=== PATIENT | male | born 1950 | race Caucasian/White ===

== ENCOUNTER 2024-10-18 07:31 | Inpatient (IN) | payer MEDICARE ==
[~2024-10-18] VITALS: Ht 177.8 cm; Wt 87.8 kg
[2024-10-18] VITALS (12 sets, daily range): BP systolic 120–141; BP diastolic 68–73; PULSE 76–96; RESP 20–44; TEMP 98–98.8; O2SAT 91–98
[~2024-10-18 07:31] MED LIST: UNABLE TO OBTAIN
--- NOTE | 2024-10-18 07:39 | ELECTROCARDIOGRAPH REPORT ---
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 Rodney Zayas Measurements Intervals [place] Rate: 93 P: 45 ID: 53 QRS: 84 QRSD: 132 T: 51 QT: 381 QTc: 474 Interpretive Statements Sinus rhythm Short ID interval Probable left atrial enlargement Right bundle branch block Electronically Signed On 10-18-2024 18:28:[address] Rodney Zayas Please click the below link to view image of tracing.
[2024-10-18 07:58] LABS: ABG BASE EXCESS 2.1 mmol/L (-2.0-3.0); ABG OXYGEN SATURATION 97.1 % (94.0-98.0); ABG PCO2 (T) 38.1 mmHg (35.0-48.0); ABG PH (T) 7.452 (7.350-7.450); ALLEN'S TEST POSITIVE; FCOHb 0.3 % (0.5-1.5); FHHb 2.9 % (0.0-5.0); FMetHb 0.3 % (0.0-1.5); FO2Hb 96.5 % (94.0-98.0); MODE MASK - BIPAP; PATIENT TEMPERATURE 37.1; RESPIRATORY RATE 18 b/min; TIDAL VOLUME 674 mL; TOTAL HEMOGLOBIN 12.7 G/dl (13.5-17.5)
--- NOTE | 2024-10-18 07:58 | ELECTROCARDIOGRAPH REPORT ---
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 Rodney Zayas Measurements Intervals [place] Rate: 87 P: 57 [place]: 143 QRS: 128 QRSD: 137 T: 56 QT: 425 QTc: 512 Interpretive Statements Sinus rhythm Right bundle branch block Borderline ST elevation, lateral leads Baseline wander in lead(s) V2 Electronically Signed On 10-18-2024 18:28:[address] Rodney Zayas Please click the below link to view image of tracing.
[2024-10-18] MEDS ORDERED: cefazolin 2gm/D5W 100mL 100 ML IV ONE (08:00)
[2024-10-18] MEDS: ipratropium/albuterol 3ml nebule NEB ONE (08:06)
[2024-10-18] MEDS: racepinephrine 11.25mg/0.5ml nebule IH ONE (08:06)
[2024-10-18] MEDS: midazolam 1 mg/ML 2ml injection IV ONE (08:10)
[2024-10-18] MEDS: ceFAZolin 2gm in dextrose, iso 50 ML IV ONE (08:15)
[2024-10-18] MEDS: piperacillin/tazo 3.375gm/50ml 50 ML IV ONE (08:20)
[2024-10-18 08:29] LABS: BASOPHILS # (AUTO) 0.1 X10'3 (0-0.2); BASOPHILS % (AUTO) 0.9 % (0-1); EOSINOPHILS # (AUTO) 0.2 X10'3 (0-0.9); HEMATOCRIT 36.2 % (42.0-52.0); HEMOGLOBIN 12.2 g/dl (14.0-17.9); LYMPHOCYTES # (AUTO) 1.5 X10'3 (1.1-4.8); LYMPHOCYTES % (AUTO) 11.9 % (21-51); MEAN CORPUSCULAR HEMOGLOBIN 29.6 PG (27.0-31.0); MEAN CORPUSCULAR HGB CONC 33.6 g/dL (33.0-36.5); MEAN CORPUSCULAR VOLUME 88.2 FL (78-98); MEAN PLATELET VOLUME 7.1 FL (7.4-10.4); MONOCYTES # (AUTO) 1.4 X10'3 (0-0.9); MONOCYTES % (AUTO) 11.1 % (2-12); NEUTROPHILS # (AUTO) 9.1 X10'3 (1.8-7.7); NEUTROPHILS % (AUTO) 74.1 % (42-75); PLATELET COUNT 449 X10'3 (140-440); RED BLOOD COUNT 4.11 X10'6 (4.70-6.10); RED CELL DISTRIBUTION WIDTH 15.4 % (11.5-14.5); WHITE BLOOD COUNT 12.3 X10'3 (4.5-11.0)
--- NOTE | 2024-10-18 08:30 | RADIOLOGY REPORT ---
DI CHEST,SINGLE VIEW, HISTORY: CP COMPARISON: DI CHEST,SINGLE VIEW on DOS: 09/27/24, DI CHEST,SINGLE VIEW on DOS: 02/25/23 DI CHEST,SINGLE VIEW on DOS: 09/27/24, DI CHEST,SINGLE VIEW on DOS: 02/25/23 TECHNICAL DATA: 1 view of the chest was obtained. FINDINGS: Lines and tubes: None Cardiomediastinal silhouette: Prominent Pulmonary vasculature: normal Lung expansion: normal Lung airspace: Multifocal bilateral patchy airspace opacities. Lung interstitium: normal Pleura: normal Pneumothorax: no Bones: Unremarkable Other: no IMPRESSION: Multifocal bilateral patchy airspace opacities. Can be seen with pulmonary edema
[2024-10-18 08:48] LABS: ALANINE AMINOTRANSFERASE 42 U/L (12-78); ALBUMIN/GLOBULIN RATIO 0.4 (1.1-1.5); ALKALINE PHOSPHATASE 181 IU/L (46-116); ANION GAP 6 (8-16); ASPARTATE AMINO TRANSFERASE 85 U/L (10-37); BILIRUBIN,TOTAL 0.4 MG/DL (0.1-1.0); BLOOD UREA NITROGEN 13 MG/DL (7-18); BUN/CREATININE RATIO 16.5 (10.0-20.0); CALCIUM 8.4 MG/DL (8.5-10.1); CHLORIDE 100 MMOL/L (99-107); CREATININE 0.79 MG/DL (0.60-1.10); GLUCOSE 110 MG/DL (70-104); POTASSIUM 4.3 MMOL/L (3.5-5.1); SODIUM 134 MMOL/L (135-145); TOTAL CARBON DIOXIDE 28.2 MMOL/L (24-32); TOTAL PROTEIN 7.4 G/DL (6.4-8.2); eCRCL 83 ML/MIN; eGFR > 90 ML/MIN
[2024-10-18 08:55] LABS: PRO BRAIN NATRIURETIC PEPTIDE 4888 PG/ML (0-450)
--- NOTE | 2024-10-18 09:08 | Physician Documentation ---
History of Present Illness ~ Chief Complaint: Shortness of Breath Stated Complaint: SOB Time Seen by MD: 07:47 Primary Medical Doctor: Dr. Brady Mode of Arrival: EMS HPI 74-year-old male patient was brought to the emergency room from [facility] where he was getting treatment for his left foot infection with IV antibiotics (cefazolin) and that he started to have shortness a breath since last night. It got better and then it get worse this morning. Therefore he was brought to the emergency room by ambulance. He said he is feeling hot. His temperature was recorded normal. The patient denies any pain. Medication Reconciliation Allergies: Coded Allergies: No Known Allergies (Unverified , 10/18/24) Miscellaneous Medications Unable to Obtain Medications (Unable to Obtain Medications), (Reported) Past Medical History Past Medical History: Chronic Pain, Anxiety Past Surgical History: orthopedic surgeries Patient History: FH: esophageal cancer MOTHER, FH: heart attack FATHER, Alcohol Use: Alcoholic Drug Use: none Lives with: Alone Lives In: Home Occupation: retired Review of Systems ROS As stated above in the HPI, otherwise all systems are reviewed and negative. Physical Exam Vital Signs: Temperature: 98.3, Source: Axillary, Heart Rate: 83, Respiratory Rate: 23, BP: 131/77, Pulse Oximetry: 95, Weight: 89.000 Physical Exam Vital signs reviewed and patient is afebrile with stable hemodynamics except increased respiratory rate . Const: Patient is in gxeg-ln-hmgyegry respiratory distress Head: Atraumatic Eyes: Normal Conjunctiva ENT: Normal External Ears, Nose and Mouth. Moist mucous membranes Neck: Full range of motion. No meningismus Resp: Good airflow with a scattered expiratory wheezes bilaterally. Some crackles at the bases. Moderately increased work of breathing Cardio: Regular rate and rhythm, no murmurs. Skin well perfused Abd: Soft, non-tender, non-distended. Normal bowel sounds. No rebound or guarding Skin: No petechiae or rashes. Warm and dry Back: No midline or flank tenderness Ext: No cyanosis, or edema Neuro: Awake and alert Psych: Normal Mood and Affect Progress Results/Orders Results/Orders Orders - ADDIE ALEJANDRA MD Chest,Single View (10/18/24 07:34) Monitor (10/18/24 07:34) Saline Lock (10/18/24 07:34) Oxygen (10/18/24 07:34) Hs Troponin I W Calculations (10/18/24 09:34) Hs Troponin I W Calculations (10/18/24 10:34) Culture Blood (10/18/24 07:34) Urinalysis, Cult If Indicated (10/18/24 07:34) Chest,Single View (10/18/24 07:34) Procalcitonin (10/18/24 07:34) Straight Cath For Urine Sample (10/18/24 07:34) Bipap/Cpap (10/18/24 ) Abg (Arterial Blood Gas) (10/18/24 ) Completed Orders - ADDIE ALEJANDRA MD Electrocardiogram (10/18/24 ) Chest,Single View (10/18/24 07:34) Cbc/Diff (10/18/24 07:34) PBNP (10/18/24 07:34) Electrocardiogram (10/18/24 07:34) CMP (10/18/24 07:34) Hs Troponin I W Calculations (10/18/24 07:34) BMP (10/18/24 07:34) Lacticsepsis (10/18/24 07:34) Cefazolin 2gm/D5w 100ml (Cefazolin 2gm/1 (10/18/24 08:00) Cefazolin 2gm In Dextrose, Iso (Cefazoli (10/18/24 08:00) Midazolam 1 Mg/Ml 2ml Inj. (Versed 1 Mg/ (10/18/24 08:05) Ipratropium/Albuterol Nebule (Ipratrop/A (10/18/24 08:00) Racepinephrine Nebule (S-2 Nebule) (10/18/24 08:00) * Rt Notification Q1H (10/18/24 08:00) Piperacillin/Tazo 3.375gm/50ml (Zosyn 3. (10/18/24 08:15) Medications Received in ER Medications (Trade) Dose Ordered Sig/[place] Route PRN Reason Start Time Stop Time Status Last Admin Dose Admin (VERSED 1 MG/ML 2 ML inj.) 1 mg ONCE ONCE IV 10/18/24 08:05 10/18/24 08:06 DC 10/18/24 08:10 1 MG (ipratrop/ albuterol 0.5-3(2.5) MG/3ml nebule) 3 ml Q4H ONCE NEB 10/18/24 08:00 10/18/24 08:03 DC 10/18/24 08:06 3 ML (S-2 nebule) 0.5 ml ONCE ONCE IH 10/18/24 08:00 10/18/24 08:03 DC 10/18/24 08:06 0.5 ML Piperacillin/ Tazobactam/ Dextrose 50 ml @ 100 mls/hr ONCE ONCE IV 10/18/24 08:15 10/18/24 08:44 DC 10/18/24 08:20 100 MLS/HR Vital Signs 10/18/24 10/18/24 10/18/24 10/18/24 07:36 07:41 07:49 07:56 Temp 98.3 98.3 Pulse 95 96 88 89 Resp 50 44 37 22 37 B/P (MAP) 146/95 146/92 (110) Pulse Ox 98 98 98 O2 Delivery Venturi Mask+ O2 Flow Rate 15 FiO2 50 50 50 10/18/24 10/18/24 10/18/24 10/18/24 07:58 08:07 08:13 08:14 Pulse 84 87 Resp 36 37 B/P (MAP) Pulse Ox 94 O2 Delivery BiPAP+ Bi-pap FiO2 40 40 40 10/18/24 08:21 Temp 98.3 Pulse 83 Resp 23 B/P (MAP) 131/77 (95) Pulse Ox 95 FiO2 40 Laboratory Tests Test 10/18/24 07:50 10/18/24 07:51 10/18/24 07:54 White Blood Count 12.3 H Red Blood Count 4.11 L Hemoglobin 12.2 L Hematocrit 36.2 L Mean Corpuscular Volume 88.2 Mean Corpuscular Hemoglobin 29.6 Mean Corpuscular Hemoglobin Concent 33.6 Red Cell Distribution Width 15.4 H Platelet Count 449 H Mean Platelet Volume 7.1 L Neutrophils (%) (Auto) 74.1 Lymphocytes (%) (Auto) 11.9 L Monocytes (%) (Auto) 11.1 Eosinophils (%) (Auto) 2.0 Basophils (%) (Auto) 0.9 Neutrophils # (Auto) 9.1 H Lymphocytes # (Auto) 1.5 Monocytes # (Auto) 1.4 H Eosinophils # (Auto) 0.2 Basophils # (Auto) 0.1 CBC Comment Sodium Level 134 L Potassium Level 4.3 Chloride Level 100 Carbon Dioxide Level 28.2 Anion Gap 6 L Blood Urea Nitrogen 13 Creatinine 0.79 Estimated GFR/1.73 m2 > 90 BUN/Creatinine Ratio 16.5 Glucose Level 110 H Lactic Acid Level 1.5 Calcium Level 8.4 L Total Bilirubin 0.4 Aspartate Amino Transf (AST/SGOT) 85 H Alanine Aminotransferase (ALT/SGPT) 42 Alkaline Phosphatase 181 H Troponin I High Sensitivity 19 Pro-B-Type Natriuretic Peptide 4888 H Total Protein 7.4 Albumin 2.0 L Globulin 5.4 H Albumin/Globulin Ratio 0.4 L Chemistry Comments Glucometer 119 H Blood Gas Specimen Type Arterial Blood Gas Puncture Site Lr O2 Saturation 97.1 Arterial Blood pH (Temp corrected) 7.452 H Arterial Blood pCO2 (Temp correct) 38.1 Arterial Blood pO2 (Temp corrected) 91.0 Arterial Blood PO2/FiO2 Ratio 1.51 Arterial Blood HCO3 26.0 Arterial Blood Base Excess 2.1 Arterial Blood Oxyhemoglobin 96.5 Arterial Blood Carboxyhemoglobin 0.3 L Arterial Blood Methemoglobin 0.3 Arterial Blood Deoxyhemoglobin 2.9 Ernesto Test Positive Blood Gas Hemoglobin 12.7 L Blood Gas Temperature 37.1 Blood Gas Set Respiration Rate 18 Blood Gas Modality Mask - bipap FiO2 50.0 Blood Gas Tidal Volume 674 Blood Gas Critical Value Called To Dr alejandra Medical Decision Making Findings I attended the patient immediately upon arrival because of his respiratory status. I reviewed his advanced medical directions and also talked to him in terms of intubation and he said okay if needed. His lung examination make me think that it could be either CHF exacerbation or aspiration pneumonitis. Patient was put on BiPAP and the he got better. His ABG does not show any CO2 retention and his oxygenation is slightly diminished. FiO2 50% pH 7.45 to, P O2 91 pCO2 38 bicarb 26 O2 sat 96.5%. His CBC showed WBC 12.3 H and H12.2 and 36.2 and platelets 449. Sodium 134 potassium 4.3 chloride 100 bicarb 28.2 BUN 13 creatinine 0.79 and glucose 110. Lactic acid is 1.5. BNP is 4888 Troponin is 19 and procalcitonin is 0.07. Patient will be admitted to the hospital for acute hypoxic respiratory failure probably from diastolic heart failure. Consideration of aspiration pneumonia was also entertained and the patient is put on Zosyn. CRITICAL CARE TIME: [45] minutes Treatments/Evaluations: Close monitoring and treatment of unstable vital signs, cardiorespiratory, and neurologic status, while maintaining tight balance of fluid, respiratory, and cardiac interventions. This time includes discussing the case with the patient and the patient�s family. This time does not include all procedures stated elsewhere in this record. This time also includes reviewing old records, labs and radiological studies. This time includes examining and re- examining the patient. Additionally, this time also includes arranging care with admitting and consulting physicians. Departure Disposition: HOME / SELF CARE / HOMELESS Impression: Primary Impression: Acute on chronic diastolic heart failure Condition: Stable Referrals: NO PRIMARY CARE PROVIDER (PCP) Signature Scribe Signature: x Attestation: ADDIE Gaming MD October 18, 2024 09:08
[2024-10-18] MEDS: furosemide 20 MG/2 ML vial IV ONE (09:28)
[2024-10-18 09:55] LABS: BILIRUBIN,URINE NEGATIVE (Neg); CLARITY,URINE CLEAR (Clear); COLOR,URINE YELLOW (Yellow); GLUCOSE, URINE NEGATIVE (Neg); KETONES,URINE NEGATIVE (Neg); LEUKOCYTE ESTERASE ,URINE NEGATIVE (Neg); NITRITES, URINE NEGATIVE (Neg); OCCULT BLOOD,URINE LARGE (Neg); PROTEIN,URINE 100 mg/dl (Neg); UROBILINOGEN,URINE 0.2 E.U/dL (0.2-1.0)
[2024-10-18 10:00] LABS: UA COLLECTION TYPE VOIDED
[2024-10-18 10:01] LABS: BACTERIA,URINE NONE SEEN /HPF (Neg); MUCUS STRANDS NONE SEEN /LPF (Neg); RBC,URINE 20-50 /HPF (0-2); SQUAMOUS EPITHELIAL CELL,UR NONE SEEN /LPF (FEW); WBC,URINE NONE SEEN /HPF (0-4)
[2024-10-18] MEDS: diazepam inj 5 MG/ML inj. IV ONE (10:02)
[2024-10-18] MEDS ORDERED: mag hydrox/Alum hydrox/simeth 30ml oral suspension PO PRN (12:45)
[2024-10-18] MEDS ORDERED: magnesium Cl slow-release 64mg tablet PO PRN (12:45)
[2024-10-18] MEDS ORDERED: potassium Cl 20 mEq SR tablet PO PRN ×2 (12:45)
[2024-10-18] MEDS ORDERED: acetaminophen 325mg tablet PO PRN (12:45)
[2024-10-18] MEDS ORDERED: ondansetron/PF 4mg/2ml inj IV PRN (12:45)
[2024-10-18] MEDS ORDERED: magnesium sulf-water 4G/100mL 100 ML IV PRN (12:45)
[2024-10-18] MEDS ORDERED: magnesium hydroxide 30ml (MOM) UD suspension PO PRN (12:45)
[2024-10-18] MEDS ORDERED: magnesium sulf-water 2g/50mL 50 ML IV PRN (12:45)
[2024-10-18] MEDS ORDERED: potassium Cl 40MEQ/1/2NS 520ml 520 ML IV PRN (12:45)
[2024-10-18] MEDS: furosemide 40mg/4ml inj IV SCH (12:57)
--- NOTE | 2024-10-18 13:03 | HISTORY AND PHYSICAL-Residence ---
History & Physical Providers to Resident Creating Document: ABIGAIL COLMENARES RES ~ History of Present Illness Primary Medical Doctor: Dr. Yu Reason for Admit\Complaint: Acute hypoxemic respiratory failure History of Present Illness 74-year-old male patient with a past medical history of peripheral neuropathy and currently undergoing treatment for left leg osteomyelitis presents to the hospital from [facility] due to acute desaturation to the 70s. Patient drowsy and irritable during exam and hence most of the history was obtained from the daughter. The daughter reports that since his discharge from the hospital on the October 02, he continued to remain mildly short of breath which had worsened yesterday acutely. He has been ambulatory with physical therapy as well as by himself. Denied any fevers or chills, cough with or without expectoration, or wheezing. Unknown of any sick contacts. He was evaluated at [facility] for abnormal pancreatic lesions which were later proven to be benign in 2022. Requested records. He does have a history of sleep apnea but is noncompliant with his CPAP. 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 Lives at home by himself. Ambulatory and independent. Alcohol Use: Alcoholic Drug Use: None Lives with: Alone Lives In: Home Occupation: retired ROS ROS Unable to be obtained as the patient was drowsy. Exam Vitals: Vital Signs Date Time Temp Pulse Resp B/P (MAP) Pulse Ox O2 Delivery O2 Flow Rate FiO2 10/18/24 12:22 98.3 82 19 133/90 (104) 96 50 10/18/24 11:22 5.0 10/18/24 10:56 Nasal Cannula* General: General: Drowsy, irritable HEENT: Conjunctiva pink, Sclera clear, Mucus Membranes moist. Resp: Tachypneic. Diminished bilateral breath sounds with bilateral basilar fine crepitations. Heart: Regular Rate and rhythm, normal S1 and S2 without murmur, rub or gallop. Abdomen: Soft and non tender no organomegaly Extremities: Left leg swollen when compared to the right leg. There is a wound that is in dressing on the left foot. Wound picture reveals presence of 2 x 2 cm open wound to the bone on the cuneiform of the left foot. 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 Skin: Warm and Dry. Diagnostic Data Last Recorded Lab Results: 10/18/24 0750 10/18/24 0931 Counseling Services Smoking & Tobacco Cessation: 3-10 Minutes Advance Care Planning Advanced Care plannin - 30 Minutes Additional Plan 1. Acute hypoxemic respiratory failure: POA Likely secondary to CHF exacerbation Echocardiogram reveals mildly elevated RVSP of 34, and preserved EF Chest x-ray reveals increased pulmonary vascular congestion with almost complete congestion of the right lung greater than the left lung IV Lasix 40 mg b.i.d. started after receiving 20 mg in the ER. Had not received Lasix at [facility] Strict I&O monitoring Fluid restriction to less than 2 L per day. Heart healthy diet 2. Left foot osteomyelitis: Receiving IV antibiotic therapy at [facility] Continue cefazolin Ambulate with assistance 3. History of paroxysmal AFib: Currently regular rhythm Continue eliquis 5mg BID after medication reconcilation Follows with Dr Carter, no AFib on outpatient monitor 4. Microscopic Hematuria: 1+ proteinuria and hematuria in light of no acute kidney injury Repeat urinalysis ordered Follow urine protein creatinine ratio 5. History of pancreatic masses: Evaluated and [facility] by [facility] Records requested from [facility] 6. Tobacco use disorder: Nicotine patch 21 mg placed Lines: PIV Code status: Limited with no intubation or mechanical ventilation Diet: NPO on the bipap; heart healthy diet after DVT prophylaxis: Heparin Q12h, SCD Abigail Colmenares PGY2, Internal medicine resident Addendum concern for poss flush pulmonary edema, on admission, required bypap 40 minutes of critical care time spent in the care of the pt Date of Service: October 18, 2024 Billing Provider: KEIRY NESS MD Common Visit Codes: [id number] CARE 30-74 MIN Secondary Visit Codes: [id number] CARE PLAN 30 MINUTES ABIGAIL COLMENARES, MICKY October 18, 2024 13:03 KEIRY NESS MD October 18, 2024 20:57
[2024-10-18 13:40] LABS: C-REACTIVE PROTEIN 5.59 MG/DL (0.0-0.5); MAGNESIUM 1.9 MG/DL (1.5-2.4)
[2024-10-18 13:42] LABS: POTASSIUM 4.4 MMOL/L (3.5-5.1)
[2024-10-18] MEDS: nicotine 21mg patch - 24 hr TD SCH (15:28)
[2024-10-18] MEDS: ceFAZolin/D5W- 1GM premix 50 ML IV SCH (16:11)
[2024-10-18 16:13] LABS: TOTAL PROTEIN,URINE RANDOM 122.3 MG/DL
[2024-10-18] MEDS: K and/or MAG REPLACEMENT MC SCH (20:00)
[2024-10-18] MEDS: docusate sod 100mg capsule PO SCH (20:38)
[2024-10-18] MEDS: heparin, porcine 5000 units/ml vial SQ SCH (20:42)
[2024-10-18] MEDS: morphine 2 MG/ML inj. syringe IV PRN (23:06)
[2024-10-19] VITALS (22 sets, daily range): BP systolic 106–140; BP diastolic 62–80; PULSE 75–91; RESP 17–34; TEMP 97.3–98.6; O2SAT 91–98
[2024-10-19] MEDS ORDERED: THIA100T70 PO (01:46)
[2024-10-19] MEDS ORDERED: FOLI0.4T6 PO (01:46)
[2024-10-19] MEDS ORDERED: APIX5TAB3 PO (01:46)
[2024-10-19] MEDS ORDERED: CEFA2PIG IV (01:46)
[2024-10-19] MEDS ORDERED: VALS40TA2 PO (01:46)
[2024-10-19] MEDS ORDERED: HYDR-3965 PO (01:46)
[2024-10-19] MEDS ORDERED: AMI200T PO (01:46)
[2024-10-19] MEDS ORDERED: METO-384 PO (01:46)
[2024-10-19] MEDS ORDERED: GUAI100L97 PO (01:46)
[2024-10-19] MEDS ORDERED: ATR0.5NEB IH (01:46)
[2024-10-19] MEDS ORDERED: ALB0.5UD IH (01:46)
[2024-10-19] MEDS ORDERED: DOCU100C40 PO (01:46)
[2024-10-19] MEDS ORDERED: DILT-88 PO (01:46)
[2024-10-19] MEDS: ceFAZolin 2gm in dextrose, iso 50 ML IV SCH (08:00)
[2024-10-19 08:38] LABS: MAGNESIUM 1.8 MG/DL (1.5-2.4); POTASSIUM 4.2 MMOL/L (3.5-5.1)
--- NOTE | 2024-10-19 08:52 | RADIOLOGY REPORT ---
EXAM: DI CHEST,SINGLE VIEW Indication: SOB Technique: Single frontal view of the chest was obtained Comparison: DI CHEST,SINGLE VIEW on DOS: 10/18/24, DI CHEST,SINGLE VIEW on DOS: 09/27/24, DI CHEST,SINGL E VIEW on DOS: 02/25/23 FINDINGS: Lines and Tubes: None Lungs: Multifocal diffuse interstitial opacities. Pleura: No effusion. No pneumothorax. Cardiomediastinal contours: Unremarkable Bones: No acute osseous abnormality. IMPRESSION: Multifocal pneumonia again visualized.
[2024-10-19] MEDS: ipratropium/albuterol 3ml nebule NEB PRN (09:01)
[2024-10-19] MEDS: thiamine 100mg tablet PO SCH (09:23)
[2024-10-19] MEDS: folic acid 0.4mg tablet PO SCH (09:23)
[2024-10-19] MEDS ORDERED: albuterol 2.5 MG/3 ML nebule NEB PRN (11:10)
[2024-10-19] MEDS: losartan 25mg tablet PO SCH (11:32)
--- NOTE | 2024-10-19 14:48 | PROGRESS NOTE- Residence ---
Progress Note - Resident Providers to CC Resident Creating Document: BRIAN COLMENARES, MICKY ~ Central Line/PICC still needed: No [place]-Non Protocol [place] Indications Met/Not Met: F/C Indications Not Met Antibiotic Timeout Antibiotic Ordered?: Yes Subjective Patient more awake today. Able to have a full conversation with the patient. States that his symptoms had begun abruptly while he was at [facility] on the day of his transferred to the hospital. Complains of shoulder pain and knee pain Reports feeling significant improvement in his breathing today. Continues to be on 8 L of oxygen via nasal cannula. Objective Vital Signs Date Time Temp Pulse Resp B/P (MAP) Pulse Ox O2 Delivery O2 Flow Rate FiO2 10/19/24 11:32 80 10/19/24 11:00 98.0 22 106/63 (77) 91 High Flow Nasal Cannula 10.0 10/19/24 09:03 55 Result Diagram: 10/18/24 0750 10/19/24 0802 General: Awake and Alert, no acute distress. HEENT: Conjunctiva pink, Sclera clear, Mucus Membranes moist. Resp: Mildly tachypneic. Diffuse mild wheezing present with basilar crackles Heart: Regular Rate and rhythm, normal S1 and S2 without murmur, rub or gallop. Abdomen: Soft and non tender no organomegaly. Bowel sounds present. No ascites. Extremities: No cyanosis,clubbing or edema. Dressing on the left foot intact with minimal drainage Skin: Warm and Dry. Assessment Assessment 74-year-old male patient presented to the hospital with acute onset of shortness of breath and is currently being managed for flash pulmonary edema. Plan Plan 1. Acute hypoxemic respiratory failure: POA Likely secondary to CHF exacerbation 10/18/2024: Echocardiogram reveals mildly elevated RVSP of 34, and preserved EF Chest x-ray reveals increased pulmonary vascular congestion with almost complete congestion of the right lung greater than the left lung IV Lasix 40 mg b.i.d. started after receiving 20 mg in the ER. Had not received Lasix at [facility] Strict I&O monitoring Fluid restriction to less than 2 L per day. Heart healthy diet 10/19/2024: - patient continues to remain on high-flow oxygen nasal cannula, desaturates to the 70s without oxygen or BiPAP. - Duo nebs and q.4 albuterol p.r.n. ordered - Negative fluid balance of 1600 present on INRs - Continue 40 mg Lasix b.i.d. Continue strict I&O monitoring - Awaiting CBC and CMP. We will monitor renal function closely - Chest x-ray reveals improved aeration when compared to yesterday. Repeat x- ray in a.m. - Continue diuresis until further negative fluid balance was achieved and can decreased 40 mg daily of Lasix starting tomorrow - etiology at this time uncertain but could likely be secondary to high dose beta mark/opioids such as [place]. Hence, closely monitor since we are restarting the metoprolol. 2. Left foot osteomyelitis: 10/18/2024: Receiving IV antibiotic therapy at [facility] Continue cefazolin Ambulate with assistance 10/19/24: Wound care consulted at admission - IV cefazolin 2 g q.8 hours ongoing - Increase in ESR noted but hemoglobin is also down to 12.2 which could likely be dilutional from the CHF. Continue monitoring CBC for overt bleeding - No baseline CRP. At this time we will closely monitor vitals for any new febrile episodes. No new labs for evaluation of white count 3. History of paroxysmal AFib: 10/18/24: Currently regular rhythm Continue eliquis 5mg BID after medication reconcilation Follows with Dr Carter, no AFib on outpatient monitor 10/19/24: Continues to be in sinus and regular rhythm - as per EMR, the patient was sent on amiodarone 200 mg daily, metoprolol and Cardizem. - we will restart metoprolol and the Eliquis but hold the rest as outpatient monitored ruled out presence of atrial fibrillation - at last discharge, metoprolol 50 mg b.i.d. was sent, we will stop this and start the patient on 25 mg med XL starting tomorrow on 10/20/2024. 4. Microscopic Hematuria: Massive proteinuria 1+ proteinuria and hematuria in light of no acute kidney injury Repeat urinalysis ordered Follow urine protein creatinine ratio 10/19/2024: UPCr are reveals proteinuria at 5.3 g -uncertain of the validity of the urinalysis, repeat urinalysis - lipid panel within normal limits, no indication of hyper triglyceridemia - hypoalbuminemia present - no other physical examination findings of fluid overload status 5. History of pancreatic masses: Evaluated and [facility] by [facility] Records requested from [facility] 6. Tobacco use disorder: Nicotine patch 21 mg placed Lines: PIV Code status: Limited with no intubation or mechanical ventilation Diet: NPO on the bipap; heart healthy diet after DVT prophylaxis: Heparin Q12h, SCD Brian Colmenares PGY2, Internal medicine resident Date of Service: October 19, 2024 Billing Provider: KEIRY NESS MD Common Visit Codes: [id number] INP/OBS CARE(HIGH) BRIAN COLMENARES, RES October 19, 2024 14:48 KEIRY NESS MD October 19, 2024 20:54
[2024-10-19 15:21] LABS: CHOL/HDL RATIO 2.5 (0.00-4.99); CHOLESTEROL 132 MG/DL (0-200); HDL CHOLESTEROL 52 MG/DL (35-60); LDL CHOLESTEROL 67 MG/DL (50-100); TRIGLYCERIDES 54 MG/DL (20-135)
[2024-10-19 18:44] LABS: BILIRUBIN,URINE NEGATIVE (Neg); CLARITY,URINE SLIGHTLY CLOUDY (Clear); COLOR,URINE YELLOW (Yellow); GLUCOSE, URINE NEGATIVE (Neg); KETONES,URINE NEGATIVE (Neg); LEUKOCYTE ESTERASE ,URINE NEGATIVE (Neg); NITRITES, URINE NEGATIVE (Neg); OCCULT BLOOD,URINE MODERATE (Neg); PROTEIN,URINE 100 mg/dl (Neg); UROBILINOGEN,URINE 0.2 E.U/dL (0.2-1.0)
[2024-10-19 18:46] LABS: UA COLLECTION TYPE NON-SPECIFIED
[2024-10-19 19:00] LABS: BACTERIA,URINE NONE SEEN /HPF (Neg); RBC,URINE 50-100 /HPF (0-2); SQUAMOUS EPITHELIAL CELL,UR NONE SEEN /LPF (FEW); WBC,URINE 0-4 /HPF (0-4)
[2024-10-19] MEDS: apixaban 5mg tablet PO SCH (20:35)
[2024-10-20] VITALS (28 sets, daily range): BP systolic 112–127; BP diastolic 60–68; PULSE 77–90; RESP 14–32; TEMP 97.1–98.4; O2SAT 90–98
[2024-10-20 07:53] LABS: BASOPHILS # (AUTO) 0.1 X10'3 (0-0.2); BASOPHILS % (AUTO) 1.1 % (0-1); EOSINOPHILS # (AUTO) 0.5 X10'3 (0-0.9); EOSINOPHILS % (AUTO) 5.2 % (0-6); HEMATOCRIT 36.1 % (42.0-52.0); LYMPHOCYTES # (AUTO) 1.7 X10'3 (1.1-4.8); LYMPHOCYTES % (AUTO) 16.8 % (21-51); MEAN CORPUSCULAR HEMOGLOBIN 29.4 PG (27.0-31.0); MEAN CORPUSCULAR HGB CONC 33.3 g/dL (33.0-36.5); MEAN CORPUSCULAR VOLUME 88.2 FL (78-98); MEAN PLATELET VOLUME 7.5 FL (7.4-10.4); MONOCYTES # (AUTO) 1.1 X10'3 (0-0.9); MONOCYTES % (AUTO) 11.3 % (2-12); NEUTROPHILS # (AUTO) 6.6 X10'3 (1.8-7.7); NEUTROPHILS % (AUTO) 65.6 % (42-75); PLATELET COUNT 482 X10'3 (140-440); RED CELL DISTRIBUTION WIDTH 15.5 % (11.5-14.5); WHITE BLOOD COUNT 10.1 X10'3 (4.5-11.0)
[2024-10-20 08:07] LABS: ALANINE AMINOTRANSFERASE 43 U/L (12-78); ALBUMIN 1.8 G/DL (3.4-5.0); ALBUMIN/GLOBULIN RATIO 0.4 (1.1-1.5); ALKALINE PHOSPHATASE 139 IU/L (46-116); ANION GAP 6 (8-16); ASPARTATE AMINO TRANSFERASE 67 U/L (10-37); BILIRUBIN,TOTAL 0.3 MG/DL (0.1-1.0); BLOOD UREA NITROGEN 16 MG/DL (7-18); BUN/CREATININE RATIO 17.8 (10.0-20.0); CALCIUM 8.5 MG/DL (8.5-10.1); CHLORIDE 102 MMOL/L (99-107); GLUCOSE 100 MG/DL (70-104); MAGNESIUM 1.8 MG/DL (1.5-2.4); SODIUM 141 MMOL/L (135-145); TOTAL PROTEIN 6.8 G/DL (6.4-8.2); eCRCL 73 ML/MIN; eGFR 82 ML/MIN
[2024-10-20] MEDS: metoprolol succinate 25mg (24-HOUR) SR. Tablet PO SCH (08:21)
[2024-10-20] MEDS: budesonide 0.5mg/2ml UD nebule IH SCH (09:19)
[2024-10-20] MEDS: albuterol 2.5 MG/3 ML nebule NEB PRN (09:20)
--- NOTE | 2024-10-20 10:32 | RADIOLOGY REPORT ---
CHEST RADIOGRAPH Indication: productive cough,new onset. SOB Technique: Single frontal view of the chest was obtained Comparison: DI CHEST,SINGLE VIEW on DOS: 10/19/24, DI CHEST,SINGLE VIEW on DOS: 10/18/24, DI CHEST,SINGLE VIEW on DOS: 09/27/24, DI CHEST,SINGLE VIEW on DOS: 02/25/23, DI CHEST,SINGLE VIEW on DOS: 10/19/24 FINDINGS: Lines and Tubes: None Lungs: Multifocal diffuse interstitial opacities. Pleura: No effusion. No pneumothorax. Cardiomediastinal contours: Unremarkable Bones: No acute osseous abnormality. IMPRESSION: Multifocal pneumonia again visualized.
[2024-10-20] MEDS: ipratropium/albuterol 3ml nebule NEB SCH (12:18)
--- NOTE | 2024-10-20 16:16 | PROGRESS NOTE- Residence ---
Progress Note - Resident Providers to CC Resident Creating Document: ABIGAIL COLMENARES RES ~ Central Line/PICC still needed: No Jurado-Non Protocol Ujrado Indications Met/Not Met: F/C Indications Not Met Antibiotic Timeout Antibiotic Ordered?: Yes Subjective Patient intermittently confused. Declined the BiPAP overnight. Continues to be short of breath with increased work of breathing. Objective Vital Signs Date Time Temp Pulse Resp B/P (MAP) Pulse Ox O2 Delivery O2 Flow Rate FiO2 10/20/24 15:13 78 24 High Flow [place] 10.0 10/20/24 15:09 97 10/20/24 15:03 58 10/20/24 06:00 97.8 125/62 (83) Result Diagram: 10/20/24 0641 10/20/24 0641 General: Awake, intermittent mild confusion HEENT: Conjunctiva pink, Sclera clear, Mucus Membranes moist. Resp: Diffuse bilateral wheezing noted Heart: Regular Rate and rhythm, normal S1 and S2 without murmur, rub or gallop. Abdomen: Soft and non tender no organomegaly. Bowel sounds present. No ascites. Extremities: No cyanosis,clubbing or edema. Dressing on the left foot intact with minimal drainage Skin: Warm and Dry. Assessment Assessment 74-year-old male patient presented to the hospital with acute onset of shortness of breath and is currently being managed for flash pulmonary edema. Plan Plan 1. Acute hypoxemic respiratory failure: POA Likely secondary to CHF exacerbation 10/18/2024: Echocardiogram reveals mildly elevated RVSP of 34, and preserved EF Chest x-ray reveals increased pulmonary vascular congestion with almost complete congestion of the right lung greater than the left lung IV Lasix 40 mg b.i.d. started after receiving 20 mg in the ER. Had not received Lasix at [facility] Strict I&O monitoring Fluid restriction to less than 2 L per day. Heart healthy diet 10/19/2024: - patient continues to remain on high-flow oxygen nasal cannula, desaturates to the 70s without oxygen or BiPAP. - Duo nebs and q.4 albuterol p.r.n. ordered - Negative fluid balance of 1600 present on INRs - Continue 40 mg Lasix b.i.d. Continue strict I&O monitoring - Awaiting CBC and CMP. We will monitor renal function closely - Chest x-ray reveals improved aeration when compared to yesterday. Repeat x- ray in a.m. - Continue diuresis until further negative fluid balance was achieved and can decreased 40 mg daily of Lasix starting tomorrow - etiology at this time uncertain but could likely be secondary to high dose beta mark/opioids such as [place]. Hence, closely monitor since we are restarting the metoprolol. - COVID and RSV negative 10/20/2024: Duo nebs q.4 scheduled, albuterol q.2h p.r.n. and budesonide nebulization started - BiPAP as tolerated - titrate oxygen to maintain saturation greater than 90% - repeat chest x-ray failed to show significant improvement when compared to yesterday, left-sided opacities are also prominent at this time. One dose of 20 mg IV Lasix given - urine output significant with negative fluid balance of 1755 - Mucinex for expectoration. Microscopic examination of the sputum - flutter valve and incentive spirometry q.1 hour when awake 2. Left foot osteomyelitis: 10/18/2024: Receiving IV antibiotic therapy at [facility] Continue cefazolin Ambulate with assistance 10/19/24: Wound care consulted at admission - IV cefazolin 2 g q.8 hours ongoing - Increase in ESR noted but hemoglobin is also down to 12.2 which could likely be dilutional from the CHF. Continue monitoring CBC for overt bleeding - No baseline CRP. At this time we will closely monitor vitals for any new febrile episodes. No new labs for evaluation of white count 3. History of paroxysmal AFib: 10/18/24: Currently regular rhythm Continue eliquis 5mg BID after medication reconcilation Follows with Dr Carter, no AFib on outpatient monitor 10/19/24: Continues to be in sinus and regular rhythm - as per EMR, the patient was sent on amiodarone 200 mg daily, metoprolol and Cardizem. - we will restart metoprolol and the Eliquis but hold the rest as outpatient monitored ruled out presence of atrial fibrillation - at last discharge, metoprolol 50 mg b.i.d. was sent, we will stop this and start the patient on 25 mg met XL starting tomorrow on 10/20/2024. 10/20/2024: Continues to be rate controlled in sinus rhythm - continue the metoprolol succinate 25 mg daily 4. Microscopic Hematuria: Massive proteinuria 1+ proteinuria and hematuria in light of no acute kidney injury Repeat urinalysis ordered Follow urine protein creatinine ratio 10/19/2024: UPCr are reveals proteinuria at 5.3 g -uncertain of the validity of the urinalysis, repeat urinalysis - lipid panel within normal limits, no indication of hyper triglyceridemia - hypoalbuminemia present - no other physical examination findings of fluid overload status 10/20/2024: Awaiting 24 hour urine sample - reviewed urine sample, no casts identified - repeat UA along with the 24 hour sample 5. History of pancreatic masses: Evaluated and [facility] by [facility] Records requested from [facility] 6. Tobacco use disorder: Nicotine patch 21 mg placed Lines: PIV Code status: Limited with no intubation or mechanical ventilation Diet: NPO on the bipap; heart healthy diet after DVT prophylaxis: Heparin Q12h, SCD Abigail Colmenares PGY2, Internal medicine resident Date of Service: October 20, 2024 Billing Provider: KEIRY NESS MD Common Visit Codes: [id number] INP/OBS CARE(HIGH) ABIGAIL COLMENARES, RES October 20, 2024 16:15 KEIRY NESS MD October 20, 2024 19:57
[2024-10-20] MEDS: furosemide 20 MG/2 ML vial IV ONE (17:10)
[2024-10-20] MEDS: lactose-reduced food (Ensure Enlive) - 237ml bottle PO SCH (17:30)
[2024-10-20] MEDS: acetaminophen 325mg tablet PO PRN (17:56)
[2024-10-20] MEDS: guaiFENesin ER 600mg tablet PO SCH (19:50)
[2024-10-20 20:16] LABS: CREATININE 24 HOUR,URINE 792 MG/24HR (900-2200); TOTAL PROTEIN 24HR,URINE 1281.6 MG/24HR (28-141); TOTAL VOLUME 24HRS,URINE 1800 ML
[2024-10-21] VITALS (27 sets, daily range): BP systolic 102–129; BP diastolic 56–70; PULSE 74–93; RESP 13–28; TEMP 97.4–98.1; O2SAT 91–98
[2024-10-21 06:08] LABS: BASOPHILS # (AUTO) 0.1 X10'3 (0-0.2); BASOPHILS % (AUTO) 0.9 % (0-1); EOSINOPHILS # (AUTO) 0.6 X10'3 (0-0.9); EOSINOPHILS % (AUTO) 5.7 % (0-6); HEMATOCRIT 41.2 % (42.0-52.0); HEMOGLOBIN 13.4 g/dl (14.0-17.9); LYMPHOCYTES # (AUTO) 1.8 X10'3 (1.1-4.8); LYMPHOCYTES % (AUTO) 17.6 % (21-51); MEAN CORPUSCULAR HEMOGLOBIN 28.8 PG (27.0-31.0); MEAN CORPUSCULAR HGB CONC 32.6 g/dL (33.0-36.5); MEAN CORPUSCULAR VOLUME 88.4 FL (78-98); MEAN PLATELET VOLUME 7.3 FL (7.4-10.4); MONOCYTES % (AUTO) 9.6 % (2-12); NEUTROPHILS # (AUTO) 6.8 X10'3 (1.8-7.7); NEUTROPHILS % (AUTO) 66.2 % (42-75); PLATELET COUNT 550 X10'3 (140-440); RED BLOOD COUNT 4.67 X10'6 (4.70-6.10); RED CELL DISTRIBUTION WIDTH 15.5 % (11.5-14.5); WHITE BLOOD COUNT 10.2 X10'3 (4.5-11.0)
[2024-10-21 06:25] LABS: ALANINE AMINOTRANSFERASE 43 U/L (12-78); ALBUMIN 2.3 G/DL (3.4-5.0); ALBUMIN/GLOBULIN RATIO 0.4 (1.1-1.5); ALKALINE PHOSPHATASE 158 IU/L (46-116); ANION GAP 8 (8-16); ASPARTATE AMINO TRANSFERASE 69 U/L (10-37); BILIRUBIN,TOTAL 0.3 MG/DL (0.1-1.0); BLOOD UREA NITROGEN 21 MG/DL (7-18); BUN/CREATININE RATIO 20.2 (10.0-20.0); CALCIUM 9.2 MG/DL (8.5-10.1); CHLORIDE 99 MMOL/L (99-107); CREATININE 1.04 MG/DL (0.60-1.10); GLUCOSE 112 MG/DL (70-104); MAGNESIUM 1.9 MG/DL (1.5-2.4); POTASSIUM 3.8 MMOL/L (3.5-5.1); SODIUM 139 MMOL/L (135-145); TOTAL CARBON DIOXIDE 32.1 MMOL/L (24-32); TOTAL PROTEIN 8.2 G/DL (6.4-8.2); eCRCL 63 ML/MIN; eGFR 70 ML/MIN
--- NOTE | 2024-10-21 10:03 | RADIOLOGY REPORT ---
CHEST RADIOGRAPH Indication: SOB Technique: Single frontal view of the chest was obtained Comparison: DI CHEST,SINGLE VIEW on DOS: 10/20/24, DI CHEST,SINGLE VIEW on DOS: 10/19/24, DI CHEST,SINGLE VIEW on DOS: 10/18/24, DI CHEST,SINGLE VIEW on DOS: 09/27/24, DI CHEST,SINGLE VIEW on DOS: 02/25/23, DI CHEST,SINGLE VIEW on DOS: 10/20/24 FINDINGS: Lines and Tubes: None Lungs: Multifocal diffuse interstitial opacities. Pleura: No effusion. No pneumothorax. Cardiomediastinal contours: Unremarkable Bones: No acute osseous abnormality. IMPRESSION: Multifocal pneumonia again visualized.
[2024-10-21] MEDS: furosemide 40mg/4ml inj IV ONE (11:34)
--- NOTE | 2024-10-21 18:43 | PROGRESS NOTE- Residence ---
Progress Note - Resident Providers to CC Resident Creating Document: ABIGAIL COLMENARES RES ~ Central Line/PICC still needed: No Jurado-Non Protocol Ujrado Indications Met/Not Met: F/C Indications Not Met Antibiotic Timeout Antibiotic Ordered?: Yes Subjective Reports improvement in breathing when compared to yesterday. Declined any increased urinary frequency with the Lasix today. Objective Vital Signs Date Time Temp Pulse Resp B/P (MAP) Pulse Ox O2 Delivery O2 Flow Rate FiO2 10/21/24 16:50 20 10/21/24 16:20 89 96 9.0 10/21/24 16:17 High Flow Salter 10/21/24 16:09 55 10/21/24 15:00 98.1 115/64 (81) Result Diagram: 10/21/24 0532 10/21/24 0532 General: Awake, intermittent mild confusion HEENT: Conjunctiva pink, Sclera clear, Mucus Membranes moist. Resp: Bilateral fine crepitations Heart: Regular Rate and rhythm, normal S1 and S2 without murmur, rub or gallop. Abdomen: Soft and non tender no organomegaly. Bowel sounds present. No ascites. Extremities: No cyanosis,clubbing or edema. Dressing on the left foot intact with minimal drainage Skin: Warm and Dry. Assessment Assessment 74-year-old male patient presented to the hospital with acute onset of shortness of breath and is currently being managed for flash pulmonary edema. Plan Plan 1. Acute hypoxemic respiratory failure: POA Likely secondary to CHF exacerbation vs amiodarone use mediated acute PF 10/18/2024: Echocardiogram reveals mildly elevated RVSP of 34, and preserved EF Chest x-ray reveals increased pulmonary vascular congestion with almost complete congestion of the right lung greater than the left lung IV Lasix 40 mg b.i.d. started after receiving 20 mg in the ER. Had not received Lasix at [facility] Strict I&O monitoring Fluid restriction to less than 2 L per day. Heart healthy diet 10/19/2024: - patient continues to remain on high-flow oxygen nasal cannula, desaturates to the 70s without oxygen or BiPAP. - Duo nebs and q.4 albuterol p.r.n. ordered - Negative fluid balance of 1600 present on INRs - Continue 40 mg Lasix b.i.d. Continue strict I&O monitoring - Awaiting CBC and CMP. We will monitor renal function closely - Chest x-ray reveals improved aeration when compared to yesterday. Repeat x- ray in a.m. - Continue diuresis until further negative fluid balance was achieved and can decreased 40 mg daily of Lasix starting tomorrow - etiology at this time uncertain but could likely be secondary to high dose beta mark/opioids such as [place]. Hence, closely monitor since we are restarting the metoprolol. - COVID and RSV negative 10/20/2024: Duo nebs q.4 scheduled, albuterol q.2h p.r.n. and budesonide nebulization started - BiPAP as tolerated - titrate oxygen to maintain saturation greater than 90% - repeat chest x-ray failed to show significant improvement when compared to yesterday, left-sided opacities are also prominent at this time. One dose of 20 mg IV Lasix given - urine output significant with negative fluid balance of 1755 - Mucinex for expectoration. Microscopic examination of the sputum - flutter valve and incentive spirometry q.1 hour when awake 10/21/2024: - discontinued amiodarone - limit use of opiates and beta blockers as they could also be one of the reasons for acute flash pulmonary edema - continues to be on high-flow nasal cannula oxygen at 10 L -no improvement noted on chest x-ray today when compared to the last two days - minimal urine output, decreased Lasix to 40 mg daily - discharge tomorrow in a.m. to [facility] if able 2. Left foot osteomyelitis: 10/18/2024: Receiving IV antibiotic therapy at [facility] Continue cefazolin Ambulate with assistance 10/19/24: Wound care consulted at admission - IV cefazolin 2 g q.8 hours ongoing - Increase in ESR noted but hemoglobin is also down to 12.2 which could likely be dilutional from the CHF. Continue monitoring CBC for overt bleeding - No baseline CRP. At this time we will closely monitor vitals for any new febrile episodes. No new labs for evaluation of white count 10/20/24: ESR elevated to 80. CRP improving 3. History of paroxysmal AFib: 10/18/24: Currently regular rhythm Continue eliquis 5mg BID after medication reconcilation Follows with Dr Carter, no AFib on outpatient monitor 10/19/24: Continues to be in sinus and regular rhythm - as per EMR, the patient was sent on amiodarone 200 mg daily, metoprolol and Cardizem. - we will restart metoprolol and the Eliquis but hold the rest as outpatient monitored ruled out presence of atrial fibrillation - at last discharge, metoprolol 50 mg b.i.d. was sent, we will stop this and start the patient on 25 mg met XL starting tomorrow on 10/20/2024. 10/20/2024: Continues to be rate controlled in sinus rhythm - continue the metoprolol succinate 25 mg daily 4. Microscopic Hematuria: Massive proteinuria 1+ proteinuria and hematuria in light of no acute kidney injury Repeat urinalysis ordered Follow urine protein creatinine ratio 10/19/2024: UPCr are reveals proteinuria at 5.3 g -uncertain of the validity of the urinalysis, repeat urinalysis - lipid panel within normal limits, no indication of hyper triglyceridemia - hypoalbuminemia present - no other physical examination findings of fluid overload status 10/20/2024: Awaiting 24 hour urine sample - reviewed urine sample, no casts identified - repeat UA along with the 24 hour sample 10/21/2024: 24 out of protein excretion at 1.2 - no nephrotic component noted 5. History of pancreatic masses: Evaluated and [facility] Records requested from [facility] 6. Tobacco use disorder: Nicotine patch 21 mg placed Lines: PIV Code status: Limited with no intubation or mechanical ventilation Diet: NPO on the bipap; heart healthy diet after DVT prophylaxis: Heparin Q12h, SCD Abigail Colmenares PGY2, Internal medicine resident Date of Service: October 21, 2024 Billing Provider: KEIRY NESS MD Common Visit Codes: [id number] INP/OBS CARE(HIGH) ABIGAIL COLMENARES, RES October 21, 2024 18:43 KEIRY NESS MD October 21, 2024 21:53
[2024-10-22] VITALS (17 sets, daily range): BP systolic 110–131; BP diastolic 55–72; PULSE 78–90; RESP 15–30; TEMP 97.2–98.3; O2SAT 95–100
[2024-10-22 05:35] LABS: BASOPHILS # (AUTO) 0.1 X10'3 (0-0.2); BASOPHILS % (AUTO) 0.9 % (0-1); EOSINOPHILS # (AUTO) 0.7 X10'3 (0-0.9); EOSINOPHILS % (AUTO) 5.7 % (0-6); HEMOGLOBIN 12.3 g/dl (14.0-17.9); LYMPHOCYTES % (AUTO) 16.8 % (21-51); MEAN CORPUSCULAR HEMOGLOBIN 29.3 PG (27.0-31.0); MEAN CORPUSCULAR HGB CONC 33.1 g/dL (33.0-36.5); MEAN CORPUSCULAR VOLUME 88.4 FL (78-98); MONOCYTES # (AUTO) 1.2 X10'3 (0-0.9); MONOCYTES % (AUTO) 10.3 % (2-12); NEUTROPHILS # (AUTO) 7.9 X10'3 (1.8-7.7); NEUTROPHILS % (AUTO) 66.3 % (42-75); PLATELET COUNT 545 X10'3 (140-440); RED BLOOD COUNT 4.19 X10'6 (4.70-6.10); RED CELL DISTRIBUTION WIDTH 15.4 % (11.5-14.5)
[2024-10-22 06:04] LABS: ALANINE AMINOTRANSFERASE 21 U/L (12-78); ALBUMIN/GLOBULIN RATIO 0.4 (1.1-1.5); ALKALINE PHOSPHATASE 127 IU/L (46-116); ANION GAP 7 (8-16); ASPARTATE AMINO TRANSFERASE 48 U/L (10-37); BILIRUBIN,TOTAL 0.3 MG/DL (0.1-1.0); BLOOD UREA NITROGEN 25 MG/DL (7-18); BUN/CREATININE RATIO 24.8 (10.0-20.0); CALCIUM 8.8 MG/DL (8.5-10.1); CHLORIDE 100 MMOL/L (99-107); CREATININE 1.01 MG/DL (0.60-1.10); GLUCOSE 113 MG/DL (70-104); MAGNESIUM 1.8 MG/DL (1.5-2.4); POTASSIUM 4.3 MMOL/L (3.5-5.1); SODIUM 138 MMOL/L (135-145); TOTAL CARBON DIOXIDE 31.1 MMOL/L (24-32); eCRCL 65 ML/MIN; eGFR 72 ML/MIN
[2024-10-22] MEDS: furosemide 40mg/4ml inj IV SCH (09:39)
--- NOTE | 2024-10-22 13:15 | RADIOLOGY REPORT ---
Procedure: CT CT CHEST Reason for study/Clinical History: Shortness of breath Comparison Study: None TECHNIQUE: Multidetector CT of the chest was performed from the lung apices to the upper abdomen with out the use of intravenous contract. Axial, coronal and sagittal multiplanar reformats were performed . Radiation Dose Information: CT Dose: CTDI volume is 18.5 mGy. Dose-length product is 690.9 mGy*cm The dose indicators for CT are the volume Computed Tomography (CT) Dose Index (CTDIvol) and the Dose Length Product (DLP), and are measured in units of mGy and mGy-cm, respectively. These indicators are not patient dose, but values generated from the CT scanner acquisition factors. The report includes radiation exposure data for exposures received during this examination. FINDINGS: Lower neck: Unremarkable. Lungs: Moderate centrilobular emphysema. Severe multifocal airspace disease. Heart/Vascular Structures: Cardiomegaly. Coronary artery calcifications. Vascular calcifications of t he aorta. Lymph Nodes: No adenopathy Pleura: No pleural effusion or significant pneumothorax. Musculoskeletal: No acute osseous abnormality. Soft tissues: Normal. Upper abdomen: Left midpole cyst with peripheral calcification measures 3.5 cm. IMPRESSION: Severe multifocal airspace disease. Cardiomegaly. Radiation optimization: All CT scans at this facility use at least one of these dose optimization jeet hniques: automated exposure control mA and/or kV adjustment per patient size (includes targeted exam s where dose is matched to clinical indication) or iterative reconstruction.
[2024-10-22] MEDS: methylPREDNISolone sod succ/PF 40mg inj. IV ONE (17:20)
--- NOTE | 2024-10-22 18:32 | DISCHARGE SUMMARY-Residence ---
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 The patient was started initially on a BiPAP in the ER. A chest x-ray done revealed increased pulmonary vascular congestion with almost complete congestion of the right lung greater than the left lung. IV Lasix 40 mg b.i.d. was started immediately. Further review of records revealed that the patient was on Lasix at [facility]. Strict input output monitoring was done, fluid restriction was maintained and a heart healthy diet started for inpatient management. Patient was switched from BiPAP due to reluctance to maintain it, he was switched to high-flow nasal cannula oxygen. He desaturated to the 70s without the oxygen with the BiPAP. Duo nebs q.4 hours and albuterol q.2h p.r.n. we are also ordered additionally. Initially on the 1st day, the patient had a negative fluid balance of 1600. On the 2nd day, the chest x-ray had revealed improved aeration. Diuresis was continued as the patient was having good output from the I&O monitoring. However, further etiologies were also evaluated with a acute flash pulmonary edema including the new and high-dose beta blockers and the opioids. Sequential chest x-rays were taken. There was no improvement from the 3rd day in the chest x-ray. Diuresis had also slowed down. Lasix was hence, cut back to 40 mg daily. Daily physical examination had revealed ongoing wheezing with right- sided greater than left-sided. Pulmicort and Mucinex were then added for along with further instructions to continue daily incentive spirometry and flutter valve every 1 hour when awake. Patient was maintained on a full telemetry monitoring throughout the hospitalization. For the continuum of the four days here, no signs of AFib were noted. Considering the fact that a lot of his medications were recently started at his prior hospitalization about a month ago, the amiodarone was stopped. The metoprolol was cut down to 25 mg metoprolol succinate daily from 50 mg metoprolol tartrate b.i.d.. We also stopped the Cardizem which was at 120 mg. He was previously admitted here for left foot osteomyelitis secondary to possible neuropathy as his vascular studies were all normal. His antibiotic treatment of cefazolin 2 g q.8 hours were continued as prior therapy. Furthermore, the patient was noted to have ongoing 1+ proteinuria and hematuria with no acute kidney injury. Random UpCr ratio initially revealed a proteinuria of 5.3 g which did not fit in line with the rest of his labs including absence of hypertriglyceridemia. Hypoalbuminemia however was evident. No other physi evelia examination findings of fluid overload status except for pulmonary edema were noted. A 24 hour urine protein was then calculated which revealed a value of 1.2 g. Nicotine patches offered further tobacco use disorder. Patient had remained on high-flow nasal cannula oxygen throughout the hospitalization between 8-[address] chest was done just prior to discharge which revealed severe bilateral multifocal airway disease with honeycombing pattern appearing similar to ILD. Advised at discharge: Obtain Nephrology consult, daily physical therapy, daily pulmonary rehabilitation, incentive spirometry and flutter valve q.1 hour when awake. Wound care. Antibiotics as per Infectious diseases. Smoking cessation education. Physical exam at discharge: General: Awake and Alert, no acute distress. HEENT: Conjunctiva pink, Sclera clear, Mucus Membranes moist. Resp: Mildly tachypneic. Wheezing in the right lung mariano greater in the left lung mariano. Heart: Regular Rate and rhythm, normal S1 and S2 without murmur, rub or gallop. Abdomen: Soft and non tender no organomegaly Extremities: No cyanosis,clubbing or edema. Skin: Warm and Dry. Labs at discharge: WBC 12.0, RBC 4.1, hemoglobin 12.3, platelet 545, ESR 80 Sodium 138, potassium 4.3, chloride 100, bicarb 31.1, BUN 25, creatinine 1.01, glucose 113, total bilirubin 0.3, AST 48, ALT 21, alkaline phosphatase 127, albumin 2.0, triglycerides 132 Medications at discharge: Solu-Medrol 40 mg IV daily, Lasix 40 mg, Mucinex 600 mg q.12h, albuterol inhaler q.2h p.r.n., duo nebs q.4 p.r.n., budesonide 0.5 mg daily, metoprolol succinate 25 mg daily, Eliquis 5 mg b.i.d., losartan 12.5 mg daily, thiamine, folic acid, cefazolin, docusate p.r.n., nicotine patch *Problems/Diagnosis: (1) Acute hypoxemic respiratory failure Total Time Spent on D/C: > 30 Minutes Date of Service: October 22, 2024 Billing Provider: KEIRY NESS MD Common Visit Codes: [id number] DISCH DAY >30min BRIAN PIZANO, MICKY October 22, 2024 18:32 KEIRY NESS MD October 22, 2024 21:00
== END 2024-10-22 17:38 | DRG 291 ==
LOC: ER 07:31 → ED HOLD 09:25 → PCU 3S 17:16
PROVIDERS: ADMIT Internal Medicine; ATTEND Internal Medicine
PROC: 5A09357 Assistance with Respiratory Ventilation, Less than 24 Consecutive Hours, Continuous Positive Airway Pressure (ICD-10-PCS; principal; 2024-10-18)
PROC: 5A0955A Assistance with Respiratory Ventilation, Greater than 96 Consecutive Hours, High Flow/Velocity Cannula (ICD-10-PCS; 2024-10-18)
DX: I50.33 Acute on chronic diastolic (congestive) heart failure (principal); J96.01 Acute respiratory failure with hypoxia; M86.172 Other acute osteomyelitis, left ankle and foot; F41.9 Anxiety disorder, unspecified; Z20.822 Contact with and (suspected) exposure to COVID-19; E78.1 Pure hyperglyceridemia; J84.89 Other specified interstitial pulmonary diseases; I48.91 Unspecified atrial fibrillation; G62.9 Polyneuropathy, unspecified; R31.29 Other microscopic hematuria; E88.09 Other disorders of plasma-protein metabolism, not elsewhere classified; T46.2X5A Adverse effect of other antidysrhythmic drugs, initial encounter; Y92.89 Other specified places as the place of occurrence of the external cause
CPT/HCPCS: 36415; 36600; 71045; 71250; 80053; 80061; 81001; 82570; 82803; 82948; 83605; 83735; 83880; 84132; 84145; 84156; 84484; 85018; 85025; 85651; 86140; 87040; 87081; 87811; 93005; 94640; 94660; 94760; 96365; 96367; 96372; 96375; 96376; 99291; A4615; A6223; A6446; A6449; A6590; A7015; C1758; G0378; J0690; J1644; J1938; J1940; J2250; J2270; J2543; J3360; J7040

== ENCOUNTER 2025-04-01 19:29 | Emergency (ER) | payer MEDICARE ==
[~2025-04-01] VITALS: Ht 182.9 cm; Wt 86.0 kg
[~2025-04-01 19:29] MED LIST changes: +ALB0.5UD IH; +AMIO200T76 PO; +APIX5TAB3 PO; +ATR0.5NEB IH; +CEFA2PIG IV; +DILT-88 PO; +DOCU100C40 PO; +FOLI0.4T6 PO; +GUAI100L97 PO; +HYDR-3965 PO; +METO-384 PO; +THIA100T70 PO; +VALS40TA2 PO
[2025-04-01 19:52] VITALS: BP 129/73; PULSE 81; RESP 20; TEMP 96.3; O2SAT 98
--- NOTE | 2025-04-01 20:01 | Physician Documentation ---
History of Present Illness ~ Chief Complaint: Dizziness Stated Complaint: DIZZINESS Primary Medical Doctor: Dr. Yu Source: patient Mode of Arrival: EMS Exam Limitations: no limitations HPI 74-year-old brought in by EMS for continuous dizziness and flu-like symptoms. Patient has chronic vertigo but states that this is ongoing. Patient's family takes care of his medications and we will meet patient and hospital per EMS Medication Reconciliation Allergies: Coded Allergies: No Known Allergies (Unverified , 04/01/25) Scheduled Amiodarone Hcl (Cordarone), 1 TAB PO BID, (Reported) Apixaban (Eliquis), 1 TAB PO Q12H, (Reported) Cefazolin Sodium/Dextrose,Iso (Cefazolin 2 Gm-D5w Bag), 2 GM IV Q8H, (Reported) Diltiazem HCl (Diltiazem 24Hr Cd), 1 CAP PO DAILY, (Reported) Docusate Sodium (Docusate Sodium), 1 CAP PO HS, (Reported) Folic Acid* (Folic Acid*), 1 MG PO DAILY, (Reported) Guaifenesin (Guaifenesin), 15 ML PO Q4H, (Reported) Metoprolol Succinate (Metoprolol Succinate), 1 TAB PO BID, (Reported) Thiamine Mononitrate (Vitamin B-1), 1 TAB PO DAILY, (Reported) Valsartan (Diovan), 20 MG PO DAILY, (Reported) Scheduled PRN Albuterol Sulfate Nebs* (Proventil Nebs*), 2.5 MG IH Q4H PRN for SOB or wheezing, (Reported) Hydrocodone Bit/Acetaminophen 5/325 MG ([place] 5/325 MG), 1 TAB PO Q4H PRN for moderate or severe pain, (Reported) Ipratropium [place] Neb* (Atrovent Neb*), 0.5 MG IH Q4H PRN for SOB or wheezing, (Reported) Miscellaneous Medications Unable to Obtain Medications (Unable to Obtain Medications), (Reported) Past Medical History Past Medical History: Chronic Pain, Anxiety Past Surgical History: orthopedic surgeries Patient History: FH: esophageal cancer MOTHER, FH: heart attack FATHER, Alcohol Use: Alcoholic Drug Use: none Lives with: Alone Lives In: Home Occupation: retired Physical Exam Vital Signs: Temperature: 96.3, Heart Rate: 81, Respiratory Rate: 20, BP: 129/73, Pulse Oximetry: 98, Weight: 86.000 Physical Exam General: Alert, no apparent distress. HEENT: moist mucous membranes. Neck: Full range of motion. Respiratory: No respiratory distress speaking in full sentences Chest: No accessory muscle use. Cardiovascular: Appears well perfused Neurologic: Oriented x4. Psychiatric: Disgruntled using phone after looking at [employer] to ask his family to pick him up that "he is not going to wait outside when 16 people are in the lobby Skin: Normal color, warm and dry. No edema, no ecchymosis. Progress Results/Orders Results/Orders Orders - BRUNA LEAVITT BELLMAN [facility] (04/01/25 20:10) Completed Orders - BRUNA LEAVITT BELLMAN [address] [facility] (04/01/25 20:10) Vital Signs 04/01/25 19:52 Temp 96.3 Pulse 81 Resp 20 B/P (MAP) 129/73 Pulse Ox 98 Laboratory Tests Test 04/01/25 20:22 White Blood Count 9.1 Red Blood Count 5.06 Hemoglobin 14.6 Hematocrit 42.5 Mean Corpuscular Volume 84.0 Mean Corpuscular Hemoglobin 28.8 Mean Corpuscular Hemoglobin Concent 34.2 Red Cell Distribution Width 15.9 H Platelet Count 343 Mean Platelet Volume 7.5 Neutrophils (%) (Auto) 61.2 Lymphocytes (%) (Auto) 25.3 Monocytes (%) (Auto) 9.9 Eosinophils (%) (Auto) 2.8 Basophils (%) (Auto) 0.8 Neutrophils # (Auto) 5.6 Lymphocytes # (Auto) 2.3 Monocytes # (Auto) 0.9 Eosinophils # (Auto) 0.3 Basophils # (Auto) 0.1 CBC Comment Sodium Level 141 Potassium Level 3.9 Chloride Level 107 Carbon Dioxide Level 25.6 Anion Gap 8 Blood Urea Nitrogen 24 H Creatinine 1.01 Estimated GFR/1.73 m2 72 BUN/Creatinine Ratio 23.8 H Glucose Level 94 Calcium Level 9.1 Troponin I High Sensitivity 7 Pro-B-Type Natriuretic Peptide 177 Albumin 3.5 Chemistry Comments Medical Decision Making Additional information obtaine: N/A Findings Patient eloped, medical screening exam completed, prior to further evaluation and treatment Differential Dx:Considerations: Include: other Departure Time of Disposition: 14:25 Disposition: 07 LEFT AWOL/ELOPED Impression: Primary Impression: Dizziness Condition: Stable Referrals: NO PRIMARY CARE PROVIDER (PCP) Signature Scribe Signature: No scribe Attestation: The note accurately reflects work and decisions made by me.Bruna Leavitt - HUGO 04/03/25 14:25 BRUNA LEAVITT NP Apr 01, 2025 20:01
--- NOTE | 2025-04-01 20:20 | ELECTROCARDIOGRAPH REPORT ---
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 Rodney Zayas Measurements Intervals [place] Rate: 85 P: 19 NE: 150 QRS: 84 QRSD: 139 T: 52 QT: 386 QTc: 459 Interpretive Statements Sinus rhythm Ventricular premature complex Right bundle branch block ST elevation, consider inferior injury Electronically Signed On 04-09-2025 8:17:[address] Rodney Zayas Please click the below link to view image of tracing.
[2025-04-01 20:33] LABS: RED CELL DISTRIBUTION WIDTH 15.9 % (11.5-14.5)
[2025-04-01 20:34] LABS: MEAN PLATELET VOLUME 7.5 FL (7.4-10.4)
--- NOTE | 2025-04-01 20:46 | RADIOLOGY REPORT ---
CLINICAL HISTORY: dizziness TECHNIQUE: Helical imaging carried out from skull base to vertex without intravenous contrast. This exam was performed according to our departmental dose optimization program. Up-to-date CT equipment and radiation dose reduction techniques are utilized as appropriate. CTDIVol: 51.53 mGy DLP: 917.68 mGy-cm WID: COMPARISON: CT CT HEAD on DOS: 02/25/23 FINDINGS: Generalized cerebral volume loss with concordant prominence of the subarachnoid spaces and ventricles. Mild patchy low attenuation in the cerebral white matter consistent with nonspecific white matter disease. There is no midline shift or mass effect. The de la o white matter interfaces are maintained. The basal cisterns are patent. There is no evidence of acute intracranial hemorrhage or extra-axial fluid collection. The mastoid air cells and visualized paranasal sinuses are well-aerated. IMPRESSION: 1. No acute intracranial abnormality. 2. Mild cerebral volume loss and mild chronic microvascular ischemic change.
--- NOTE | 2025-04-01 20:52 | RADIOLOGY REPORT ---
CHEST RADIOGRAPH Indication: CP Technique: Single frontal view of the chest was obtained COMPARISON: CT CT CHEST on DOS: 10/22/24, DI CHEST,SINGLE VIEW on DOS: 10/21/24, DI CHEST,SINGLE VIEW on DOS: 10/20/24, DI CHEST,SINGLE VIEW on DOS: 10/19/24, DI CHEST,SINGLE VIEW on DOS: 10/18/24 FINDINGS: Lungs and pleural spaces are clear apart from chronic appearing interstitial changes bilaterally. Cardiac silhouette and marilee are within normal limits. Bones and soft tissues demonstrate no significant abnormality. IMPRESSION: No acute disease.
[2025-04-01 20:54] LABS: CREATININE 1.01 MG/DL (0.60-1.10); PRO BRAIN NATRIURETIC PEPTIDE 177 PG/ML (0-450); TOTAL CARBON DIOXIDE 25.6 MMOL/L (24-32); eCRCL 69 ML/MIN; eGFR 72 ML/MIN
== END 2025-04-01 22:16 | disposition left against medical advice (07) ==
LOC: ER 19:30
DX: R42 Dizziness and giddiness (principal); G89.29 Other chronic pain; F41.9 Anxiety disorder, unspecified; Z79.899 Other long term (current) drug therapy; Z98.890 Other specified postprocedural states; Z60.2 Problems related to living alone
CPT/HCPCS: 36415; 70450; 71045; 80048; 83880; 84484; 85025; 93005; 99285